=== PATIENT | female | born 1935 | race Caucasian/White ===

== ENCOUNTER → 2017-03-28 | Outpatient (CLI) | payer OTHER ==
[~2017-03-28] MED LIST: ACT15 PO; ALT10 PO; ASPEC81 PO; CHOL1CAP57 PO; CLB/200 PO; EPGI20M SQ; FLNIN NAE; FLV1 PO; GLC/500 PO; GLYB1.257 PO; LEVO75TA5 PO; NXM/40 PO; PYRI100T4 PO; SNQ50 PO; ULT50X PO; VITAMIN B12 INJ INJ; ocuvite PO
[2017-03-28 12:45] LABS: CREATININE, URINE 29.4 mg/dl; URINE PROTIEN/CREAT RATIO 0.9 (0-0.2); URINE TOTAL PROTEIN 27.3 mg/dl (0-11.9)
[2017-03-28 12:46] LABS: BLOOD UREA NITROGEN 31 mg/dl (7-18); BUN/CREATININE RATIO 22.6 (10-20); CALCIUM 8.6 mg/dl (8.5-10.1); CARBON DIOXIDE 25 mmol/L (21-32); CHLORIDE 103 mmol/L (98-107); CREATININE 1.39 mg/dl (0.60-1.20); GLUCOSE 228 mg/dl (70-99); POTASSIUM 4.6 mmol/L (3.5-5.1); SODIUM 137 mmol/L (136-145)
[2017-03-28 12:47] LABS: PHOSPHORUS 3.6 mg/dl (2.5-4.9)
== END | disposition home or self-care (01) ==
LOC: C.LABPBG 09:40
PROVIDERS: ATTEND Internal Medicine Nephrology
DX: N18.3 Chronic kidney disease, stage 3 (moderate) (principal)